=== PATIENT | female | born 1950 | race Caucasian/White ===

== ENCOUNTER → 2016-06-28 | Outpatient (CLI) | payer MEDICARE, BC ==
[~2016-06-28] MED LIST: AMIT-46 PO; CALC-586 PO; FLUT16SP13 NS; GADOBUTROL 10mMol/10ml INJECTION IV ONE; MAGN30TA3 PO; PENT100C8 PO; POTA99TA9 PO; SALINE FLUSH 10ml SYRINGE ONE; SALM1CAP3 PO; VITA1CAP52 PO; VITA400T PO; ZINC15TA2 PO; [UNRECOGNIZED DRUG - CODE]; [UNRECOGNIZED DRUG - CODE] MC; [UNRECOGNIZED DRUG - CODE] PO; [UNRECOGNIZED DRUG - CODE] PO
--- NOTE | 2016-06-28 09:24 | DI ---
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 Contrast: 5.5 mL of Gadavist FINDINGS: The ventricles are of normal size, shape, and contour for the patient's age. There are small nonspecific punctate areas of T2-weighted and T2 FLAIR weighted signal abnormality in the deep frontoparietal white matter that most likely represent small vessel ischemic disease. This is of a degree that is considered to be normal for the patient's age. The brain stem, cerebellum, and cerebral hemispheres otherwise have a normal morphologic appearance as well as MR signal intensity on all pulse sequences. Following intravenous administration of contrast, no areas of abnormal enhancement are evident. There are no areas of restricted diffusion to suggest an acute infarct. There is no evidence of an intracranial mass lesion, intracranial hemorrhage, or hydrocephalus. The visualized portions of the orbits, calvarium, paranasal sinuses, and skull base demonstrate no significant abnormality. IMPRESSION: Unremarkable MRI of the head for the patient's age with and without contrast. .
== END ==
LOC: IMA 07:34
PROVIDERS: ATTEND Family Medicine
DX: H53.121 Transient visual loss, right eye (principal)
CPT/HCPCS: 70553; A9585